=== PATIENT | male | born 1985 | race American Indian/Alaskan Native ===

== ENCOUNTER 2019-02-14 17:45 | Emergency (ER) | payer SELFPAY ==
[2019-02-14 18:14] VITALS: O2SAT 98; BMI 27.8
[2019-02-14] MEDS ORDERED: Albuterol-Ipratrop 3 mg / 0.5 (3 ml) UD IH STA (18:20)
--- NOTE | 2019-02-14 18:33 | ED PDOC ---
Arrival/HPI - General Chief Complaint: Fever Time Seen by Provider: 02/14/19 17:55 Historian: Patient - History of Present Illness Narrative History of Present Illness (Text): 02/14/19 18:24 33 y/o male with PMH of asthma presents to the ED c/o cough and congestion x 1 day. Beginning yesterday, patient developed cough productive of green sputum with associated subjective fever. Pt does not have a ventolin inhaler at home. Denies abdominal pain, chest pain, nausea, vomiting, SOB, neck pain/stiffness, headache, visual changes, or any other associated symptoms. Past Medical History - Provider Review Nursing Documentation Reviewed: Yes - Infectious Disease Hx of Infectious Diseases: None - Tetanus Immunization Tetanus Immunization: Unknown - Pulmonary Hx Asthma: Yes - Psychiatric Hx Substance Use: No - Past Surgical History Past Surgical History: No Previous - Anesthesia Hx Anesthesia: No - Suicidal Assessment Feels Threatened In Home Enviroment: No Family/Social History - Physician Review Nursing Documentation Reviewed: Yes Family/Social History: No Known Family HX Smoking Status: Light Smoker < 10 Cigarettes Daily Hx Alcohol Use: No Hx Substance Use: No Hx Substance Use Treatment: No Allergies/Home Meds Allergies/Adverse Reactions: Allergies shellfish derived Allergy (Verified 02/14/19 18:14) ANAPHYLAXIS Review of Systems - Review of Systems Constitutional: Normal. absent: Fevers Eyes: Normal. absent: Vision Changes ENT: Normal. absent: Sore Throat, Sinus Congestion Respiratory: Cough, Sputum, Wheezing Cardiovascular: Normal. absent: Chest Pain, Palpitations Gastrointestinal: Normal. absent: Abdominal Pain, Nausea, Vomiting Musculoskeletal: Normal. absent: Back Pain, Neck Pain Skin: Normal. absent: Rash Neurological: Normal. absent: Headache, Dizziness Physical Exam Vital Signs Reviewed: Yes Vital Signs Temp Pulse Resp BP Pulse Ox 02/14/19 18:10 98.6 F 94 H 18 107/69 98 02/14/19 17:45 98.6 F 94 H 18 107/69 98 Temperature: Afebrile Blood Pressure: Normal Pulse: Regular Respiratory Rate: Normal Appearance: Positive for: Well-Appearing, Non-Toxic, Comfortable Pain Distress: None Mental Status: Positive for: Alert and Oriented X 3 - Systems Exam Head: Present: Atraumatic, Normocephalic Extroacular Muscles: Present: EOMI Conjunctiva: Present: Normal Ears: Present: Normal, NORMAL TM, Normal Canal Mouth: Present: Moist Mucous Membranes Pharnyx: Present: Normal. No: ERYTHEMA, EXUDATE, TONSILS ENLARGED Nose (Internal): Present: Normal Inspection, Moist Neck: Present: Normal Range of Motion. No: Meningeal Signs Respiratory/Chest: Present: Good Air Exchange, Wheezes (mild diffuse, expiratory bilaterally ). No: Respiratory Distress, Accessory Muscle Use Cardiovascular: Present: Regular Rate and Rhythm, Normal S1, S2, Peripheal Pulses Present Upper Extremity: Present: Normal Inspection, Normal ROM, NORMAL PULSES, Neurovascularly Intact, Capillary Refill < 2s. No: Cyanosis, Edema, Temperature Abnormalties Lower Extremity: Present: Normal ROM Neurological: Present: GCS=15, CN II-XII Intact, Speech Normal, Motor Func Grossly Intact, Normal Sensory Function, Gait Normal Skin: Present: Warm, Dry, Normal Color. No: Rashes Psychiatric: Present: Alert, Oriented x 3, Normal Insight, Normal Concentration Medical Decision Making ED Course and Treatment: 02/14/19 18:24 Initial Plan: * Rapid strep * Rapid flu * CXR * Duoneb * Prednisone Rapid strep negative Rapid flu negative CXR shows possible left lower lobe infiltrate, pending official read. Will treat with Z-Marcial. Patient reports improvement in symptoms with medications. On repeat lung exam, patient has decreased wheezing with improved air exchange. Pt continues to be afebrile with stable vitals including O2 saturation. Advised PMD followup for repeat CXR in 1 week with return for worsening symptoms. Diagnostic testing results and plan of care discussed with patient. Strict instructions given regarding prescription use, importance of followup, and signs/symptoms to return to ER including SOB, chest pain, or any other new/worsening symptoms. Pt verbalized understanding of discussion. Patient is A&Ox3, ambulating with steady gait, with vital signs stable for discharge. - Lab Interpretations Lab Results: Lab Results 02/14/19 18:40: Influenza Typ A,B (EIA) Negative for flu a/b, Grp A Beta Strep Ag Negative I have reviewed the lab results: Yes - RAD Interpretation Radiology Orders: 02/14/19 18:16 CXR (PA/LAT) [CHEST TWO VIEWS (PA/LAT)] [RAD] Stat - Medication Orders Current Medication Orders: Discontinued Medications Albuterol/Ipratropium (Duoneb 3 Mg/0.5 Mg (3 Ml) Ud) 3 ml IH STAT STA Stop: 02/14/19 18:21 Prednisone (Prednisone Tab) 60 mg PO STAT ONE Stop: 02/14/19 18:21 Disposition/Present on Arrival - Present on Arrival Any Indicators Present on Arrival: No History of DVT/PE: No History of Uncontrolled Diabetes: No Urinary Catheter: No History of Decub. Ulcer: No History Surgical Site Infection Following: None - Disposition Have Diagnosis and Disposition been Completed?: Yes Diagnosis: Asthma, Lower resp. tract infection Disposition: HOME/ ROUTINE Disposition Time: 19:30 Patient Plan: Discharge Condition: IMPROVED Discharge Instructions (ExitCare): Asthma, Adult (DC), Acute Bronchitis Additional Instructions: Prednisone 2 tabs daily for 4 more days Ventolin inhaler 2 puffs every 6 hours Zpak as directed Followup with primary doctor within 2 days Return to ER with any new/worsening symptoms Prescriptions: Albuterol Sulfate [Ventolin Hfa] 2 puff IH Q6 #1 pump Azithromycin [Z-Marcial] 250 mg PO DAILY #6 tab predniSONE [predniSONE Tab] 40 mg PO DAILY #8 tab Referrals: [facility] – [place] [[place]] - Follow up with primary Karen Arrington MD [Medical Doctor] - Follow up with primary Forms: [facility] (Armenian), WORK NOTE
[2019-02-14 19:21] LABS: INFLUENZA A B NEGATIVE FOR FLU A/B (NEGATIVE)
[2019-02-14 19:39] VITALS: BP 118/72; PULSE 84; RESP 20; TEMP 98.2
--- NOTE | 2019-02-15 11:45 | RAD ---
Date of service: 02/14/2019 HISTORY: fever, cough COMPARISON: No prior. TECHNIQUE: Chest PA and lateral views FINDINGS: LUNGS: Left lower lobe/retrocardiac infiltrate likely acute pneumonia. PLEURA: No significant pleural effusion identified. No pneumothorax apparent. CARDIOVASCULAR: No aortic atherosclerotic calcification present. Normal cardiac size. No pulmonary vascular congestion. OSSEOUS STRUCTURES: No significant abnormalities. VISUALIZED UPPER ABDOMEN: Normal. OTHER FINDINGS: None. IMPRESSION: Left lower lobe infiltrate. There is no available information indicating that the relevant findings on this study are known to the health care personnel involved in the care and management of the patient. Accordingly, and per institutional protocol, this report has been routed to the PA folder for review
== END 2019-02-14 19:40 | disposition home or self-care (01) ==
LOC: ED 17:45
DX: J45.909 Unspecified asthma, uncomplicated (principal); J22 Unspecified acute lower respiratory infection; F17.210 Nicotine dependence, cigarettes, uncomplicated